=== PATIENT | female | born 1965 | race Asian ===

== ENCOUNTER → 2017-11-09 | Outpatient (CLI) | payer OTHER | END | disposition home or self-care (01) | LOC: CFH 14:25 | PROVIDERS: ATTEND Obstetrics & Gynecology | DX: Z12.31 Encounter for screening mammogram for malignant neoplasm of breast (principal) | CPT/HCPCS: 77067 ==

== ENCOUNTER → 2019-01-31 | Outpatient (CLI) | payer OTHER | END | disposition home or self-care (01) | LOC: CFH 14:13 | PROVIDERS: ATTEND Obstetrics & Gynecology | DX: Z12.31 Encounter for screening mammogram for malignant neoplasm of breast (principal) | CPT/HCPCS: 77067 ==

== ENCOUNTER → 2021-02-17 | Outpatient (CLI) | payer OTHER | END | disposition home or self-care (01) | LOC: CFH 09:04 | PROVIDERS: ATTEND Obstetrics & Gynecology | DX: Z12.31 Encounter for screening mammogram for malignant neoplasm of breast (principal) | CPT/HCPCS: 77063; 77067 ==